=== PATIENT | female | born 1985 | race Caucasian/White ===

== ENCOUNTER 2018-07-05 11:40 | Emergency (ER) | payer MEDICAID ==
[2018-07-05 12:09] VITALS: BP 126/88
--- NOTE | 2018-07-05 12:11 | Emergency Department Report ---
Blank Doc - Documentation Documentation: This is a 33-year-old female that presents s/p fall while at school. She repo rts neck, coccyx, and left wrist pain. Patient brought in via EMS, hard collar in place. 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 This initial assessment diagnostic orders/clinical plan/treatment(s) is/are subject to change based on patient's health status, clinical progression and re- assessment by fellow clinical providers in the ED. Further treatment and workup at subsequent clinical providers discretion. Patient/guardians urged not to elope from ED s their condition may be serious if not clinically assessed and managed. Initial orders include: Ordered XR of neck, coccyx, and left wrist. Fast track fro further evaluation.
[2018-07-05] MEDS ORDERED: NORCO 5/325 PO ONE (13:19)
--- NOTE | 2018-07-05 13:50 | XRay Report ---
LEFT WRIST, 2 views: HISTORY: Pain. Routine views demonstrate the carpal bones to be well mineralized with well preserved bony mineralization and interosseous joint spaces. The carpal and adjacent articular bones have normal contours. The surrounding soft tissues are unremarkable. IMPRESSION: Normal study.
--- NOTE | 2018-07-05 13:50 | XRay Report ---
AP AND LATERAL CERVICAL SPINE: History: Neck pain. Mild to moderate disc space narrowing with anterior spurring is identified at C5-6. The remaining levels are within normal limits. Normal facet joints. No evidence for fracture, subluxation or bone lesion. A large right C7 cervical rib is identified. IMPRESSION: No acute process. Degenerative changes at C5-6. Right C7 cervical rib.
--- NOTE | 2018-07-05 13:51 | XRay Report ---
SACRUM AND COCCYX: History: Coccyx pain. The bony architecture is intact. The alignment appears normal. No significant soft tissue abnormalities are seen. IMPRESSION: Normal sacrum and coccyx.
--- NOTE | 2018-07-05 15:03 | Emergency Department Report ---
ED Fall HPI - General Chief Complaint: Fall Stated Complaint: FALL Time Seen by Provider: 07/05/18 12:06 Source: patient Mode of arrival: Ambulatory - History of Present Illness Initial Comments: Patient is a 31-year-old female who is presenting status post fall. Patient states she was at work and they're doing construction and there was a slippery substance on the ground. Patient states there is no sinus telling her to avoid this area she slipped and fell. Patient states she fell backwards and hurt her tailbone as well as her neck and her left wrist. He states pains are aching in nature and 6 out of 10 in severity. Patient says hurts worse with movement. Patient denies loss consciousness. The patient has no other injuries at this time. - Related Data Previous Rx's Medication Instructions Recorded Last Taken Type HYDROcodone/APAP 5-325 [[place] 1 each PO Q4HR PRN #12 tablet 07/05/18 Unknown Rx 5/325] Ibuprofen [Motrin] 800 mg PO Q8HR PRN #20 tablet 07/05/18 Unknown Rx methOCARBAMOL [Robaxin TAB] 500 mg PO Q6H PRN #15 tablet 07/05/18 Unknown Rx Allergies Allergy/AdvReac Type Severity Reaction Status Date / Time Fish Containing Products Allergy Anaphylaxis Verified 07/05/18 12:07 latex Allergy Hives Verified 07/05/18 12:07 shellfish derived Allergy Anaphylaxis Verified 07/05/18 12:07 ED Review of Systems ROS: Stated complaint: FALL Other details as noted in HPI Comment: All other systems reviewed and negative ED Past Medical Hx - Past Medical History Previous Medical History?: Yes Additional medical history: heart murmur - Surgical History Past Surgical History?: Yes Additional Surgical History: prolaspe valve - Social History Smoking Status: Never Smoker Substance Use Type: None - Medications Home Medications: Home Medications Medication Instructions Recorded Confirmed Last Taken Type HYDROcodone/APAP 5-325 [[place] 1 each PO Q4HR PRN #12 tablet 07/05/18 Unknown Rx 5/325] Ibuprofen [Motrin] 800 mg PO Q8HR PRN #20 tablet 07/05/18 Unknown Rx methOCARBAMOL [Robaxin TAB] 500 mg PO Q6H PRN #15 tablet 07/05/18 Unknown Rx ED Physical Exam - General Limitations: No Limitations General appearance: alert, in no apparent distress - Head Head exam: Present: atraumatic, normocephalic - Eye Eye exam: Present: normal appearance - ENT ENT exam: Present: mucous membranes moist - Neck Neck exam: Present: normal inspection, tenderness (generalized), other (immobilized). Absent: full ROM - Respiratory Respiratory exam: Present: normal lung sounds bilaterally. Absent: respiratory distress - Cardiovascular Cardiovascular Exam: Present: regular rate, normal rhythm. Absent: systolic murmur, diastolic murmur, rubs, gallop - GI/Abdominal GI/Abdominal exam: Present: soft, normal bowel sounds. Absent: distended, tenderness, guarding, rebound - Extremities Exam Extremities exam: Present: normal inspection, tenderness (left wrist), normal capillary refill. Absent: joint swelling - Back Exam Back exam: Present: normal inspection, vertebral tenderness (lower lumbar and upper tailbone area) - Neurological Exam Neurological exam: Present: alert, oriented X3 - Psychiatric Psychiatric exam: Present: normal affect, normal mood - Skin Skin exam: Present: warm, dry, intact, normal color. Absent: rash ED Course Vital Signs 07/05/18 12:07 Temperature 98.3 F Pulse Rate 90 Respiratory 18 Rate Blood Pressure 126/88 O2 Sat by Pulse 99 Oximetry ED Medical Decision Making - Radiology Data X-rays of the coccyx, C-spine, left wrist showed no acute abdomen. - Medical Decision Making Patient will be discharged home with meds for symptomatically relief. Critical care attestation.: If time is entered above; I have spent that time in minutes in the direct care of this critically ill patient, excluding procedure time. ED Disposition Clinical Impression: Musculoskeletal pain Fall Qualifiers: Encounter type: initial encounter Qualified Code(s): W19.XXXA - Unspecified fall, initial encounter Cervical strain Qualifiers: Encounter type: initial encounter Qualified Code(s): S16.1XXA - Strain of muscle, fascia and tendon at neck level, initial encounter Disposition: - TO HOME OR SELFCARE Is pt being admited?: No Does the pt Need Aspirin: No Condition: Stable Instructions: Muscle Strain (ED), Low Back Strain (ED), Cervical Spine Strain (ED) Referrals: JOVANNA COELHO MD [Staff Physician] - as needed Time of Disposition: 15:03
== END 2018-07-05 15:15 | disposition home or self-care (01) ==
LOC: ED 11:40
DX: S16.1XXA Strain of muscle, fascia and tendon at neck level, initial encounter (principal); M54.5 Low back pain; M25.532 Pain in left wrist; Z91.013 Allergy to seafood; Z91.040 Latex allergy status; W01.0XXA Fall on same level from slipping, tripping and stumbling without subsequent striking against object, initial encounter; Y93.89 Activity, other specified; Y99.8 Other external cause status; Y92.64 Mine or pit as the place of occurrence of the external cause
CPT/HCPCS: 72040; 72220